=== PATIENT | female | born 1950 | race Caucasian/White ===

== ENCOUNTER 2018-06-12 14:06 | Outpatient (CLI) | payer MEDICARE, MEDICAID ==
[~2018-06-12 14:06] MED LIST: Gadobenate Dimeglumine 529 MG/1 ML (20ML VIAL) ONE
--- NOTE | 2018-06-12 17:22 | MRI ---
BRAIN MRI WITH AND WITHOUT CONTRAST: 06/12/2018 HISTORY: Re-evaluate focal white matter abnormality seen on prior imaging. History of brain tumor. COMPARISON: 04/18/2017 and 08/10/2016 TECHNIQUE: Multiplanar, multisequence MR imaging of the brain obtained with and without contrast. FINDINGS: The diffusion weighted imaging demonstrates no evidence for acute infarction, and the axial gradient echo imaging demonstrates no evidence for intracranial hemorrhage. There is multifocal periventricular, deep, and subcortical white matter hypodensity, evidence of smal l vessel disease. There is a confluent area of increased T2 and FLAIR signal within the deep and per iventricular white matter, within the posterior left frontal parietal region. This area of increased T2 and FLAIR signal measures up to 2.6 cm in transverse dimension and 2.4 cm in AP dimension, not si gnificantly changed when compared to the 04/18/2017 examination. This area is of decreased precontra st T1 signal. There is stable moderate diffuse cerebral volume loss. Post contrast imaging demonstrates no abnormal enhancement in the area of focal confluent hyperintens ity within the deep and ventricular white matter on the left. The visualized paranasal sinuses/masto id air cells demonstrate partial opacification of the mastoid air cells on the left, a stable finding . Arterial flow voids at the axial level of the skull base appear grossly unremarkable on the T2 weight ed imaging. Regional bone marrow signal intensity appears within normal limits. Post contrast imaging demonstrates no abnormal enhancement within the brain parenchyma. IMPRESSION: Stable focal area of abnormal increased T2 and FLAIR signal within the posterior deep left frontopari etal white matter, as detailed above. No abnormal enhancement is seen. Continued followup is advised. POS: HOWARD
== END 2018-06-12 14:07 | disposition home or self-care (01) ==
LOC: TBSIIMAG 14:06
PROVIDERS: ATTEND Neurological Surgery
DX: C71.9 Malignant neoplasm of brain, unspecified (principal); R90.82 White matter disease, unspecified
CPT/HCPCS: 70553; 82565; A9579

== ENCOUNTER 2018-11-02 08:32 | Outpatient (CLI) | payer MEDICARE, MEDICAID ==
[2018-11-02] MEDS ORDERED: Gadobenate Dimeglumine 529 MG/1 ML (20ML VIAL) ONE (10:52)
--- NOTE | 2018-11-02 10:55 | MRI ---
BRAIN MRI WITH AND WITHOUT CONTRAST: COMPARISON: 06/12/2018. CLINICAL HISTORY: Neoplasm of unspecified behavior of brain. FINDINGS: Redemonstration of confluent white matter signal abnormality of the left parietooccipital lobe, with traversing linear decreased signal intensity likely related to small areas of cyst formation within t he brain parenchyma which are also seen contralaterally and may relate to scattered areas of dilated perivascular spaces.. There is no pathologic intraaxial enhancement. The finding remains superimpos ed upon additional multifocal punctate white matter signal abnormalities of each cerebral hemisphere. There is no new mass effect, midline shift, or evidence of ventriculomegaly. No hemorrhagic suscep tibility is present, intracranially. IMPRESSION: Stable confluent white matter signal abnormality of the posterior left cerebral hemisphere near the t rigone. 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 There remains absence of associated enhancement. Recommend continued imaging followup. POS: Miroslava
== END 2018-11-02 08:33 | disposition home or self-care (01) ==
LOC: TBSIIMAG 08:32
PROVIDERS: ATTEND Neurological Surgery
DX: D49.6 Neoplasm of unspecified behavior of brain (principal); R90.82 White matter disease, unspecified
CPT/HCPCS: 70553; 82565; A9579

== ENCOUNTER 2019-07-09 13:42 | Outpatient (CLI) | payer MEDICARE, MEDICAID ==
--- NOTE | 2019-07-09 15:25 | MRI ---
Exam: Brain MRI with and without contrast HISTORY: Brain disorder. 6 month follow-up. Brain tumor. COMPARISON: 11/02/2018, 06/12/2018, 04/18/2017, 08/10/2016 FINDINGS: Gradient echo sequence: No hemorrhage Calvarium: Appropriate T1 marrow signal intensity Midline brain parenchyma: Unremarkable Cerebrum:Redemonstration of a T2 and FLAIR hyperintensity involving the left periventricular and deep white matter, near the trigone of the left ventricle. This abnormal signal intensity measures 2.1 x 2.3 cm (measuring 2.6 x 2.4 cm in 2017 and 2.0 x 2.5 cm in 2016). [facility]. Additional T2 and FLAIR white matter hyperintensities are noted Ventricles: No evidence of hydrocephalus. Sinuses and mastoid air cells: Adequate aeration Diffusion: Central arterial flow is maintained. Absent restricted diffusion. Postcontrast images: No pathologic enhancement of the brain parenchyma. IMPRESSION: Stable white matter hyperintensities in the left cerebral hemisphere, as described above. No associat ed enhancement. No appreciable change since August 2016.
[2019-07-09] MEDS ORDERED: Gadobenate Dimeglumine 529 MG/1 ML (20ML VIAL) ONE (16:33)
== END 2019-07-09 13:43 | disposition home or self-care (01) ==
LOC: TBSIIMAG 13:42
PROVIDERS: ATTEND Neurological Surgery
DX: G93.9 Disorder of brain, unspecified (principal)
CPT/HCPCS: 70553; 82565; A9577

== ENCOUNTER 2020-06-30 13:03 | Outpatient (CLI) | payer MEDICARE, MEDICAID ==
[~2020-06-30 13:03] MED LIST changes: -Gadobenate Dimeglumine 529 MG/1 ML (20ML VIAL) ONE; +Magnevist 469MG/ML 20 ML VIAL ONE
--- NOTE | 2020-06-30 14:52 | MRI ---
MRI BRAIN WITH AND WITHOUT CONTRAST: DATE: 06/30/2020 HISTORY: 70 year old female follow-up brain tumor G 93.9 COMPARISON: 04/28/2016 and 07/09/2019 TECHNIQUE: Multiplanar, multisequence MRI of the brain performed pre- and post-IV injection of gadolinium based contrast agent. FINDINGS: In the left parietal mccurdy radiata and centrum semiovale, there is a patchy white matter lesion whic h is hyperintense on T2 WI and FLAIR. It is moderately hypointense, isointense to tracy matter, on T1 WI. It is difficult to obtain a measurement because of its very irregular shape, but it is roughly approximately 3 x 3 x 1.5 cm (because of the irregular shape that defies accurate measurement in any one axial image plane, measurements today were obtained on the sagittal and coronal T1 MPR sequen mayra). It has not significant changed since 07/09/2019. It probably has not significantly changed since 04/28/2016. There are multiple dilated Virchow-Leonardo perivascular spaces in the bilateral parieta l deep cerebral white matter, and many of them traverse this moderate sized left parietal lesion. The etiology is uncertain. 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 However, the lesion is not typical in appearance for any other entity. There are numerous tiny, subcentimeter foci of hyperintense signal on the FLAIR sequence and T2 WI th roughout the bilateral subcortical, deep, and periventricular, white matter, including mccurdy radiata and centrum semiovale. These are consistent with mild to moderate chronic ischemic white han er changes due to microvascular atherosclerosis. These appear to be worse than on 04/28/2016. They are either stable or minimally worse than on 07/09/2019. Ventricles are normal in size and configuration. There is no abnormal enhancement, including the left parietal lesion described above. No evidence of recent or remote major intra-axial hemorrhage. No restricted diffusion, mass effect, midline shift, or extra-axial fluid collection. Is a left mastoid effusion.. IMPRESSION: 1) the left parietal deep white matter lesion is unchanged since 2015. 2) recommend continued follow-up serial brain MRIs with and without contrast, which can probably be e very 2 years. 3) mild to moderate diffuse chronic ischemic white matter changes due to microvascular atherosclerosi s.
== END 2020-06-30 13:04 | disposition home or self-care (01) ==
LOC: TBSIIMAG 13:03
PROVIDERS: ATTEND Neurological Surgery
DX: D49.6 Neoplasm of unspecified behavior of brain (principal); I67.2 Cerebral atherosclerosis; G93.9 Disorder of brain, unspecified; I67.82 Cerebral ischemia
CPT/HCPCS: 70553; 82565; A9579